=== PATIENT | male | born 1985 | race Caucasian/White ===

== ENCOUNTER 2018-07-25 22:11 | Emergency (ER) | payer OTHER ==
[~2018-07-25] VITALS: Ht 180.3 cm; Wt 95.3 kg
[~2018-07-25 22:11] MED LIST: AMOXICILLIN500 MG PO; FAMOTIDINE20 M1 PO; MOTRIN800 MG PO; OMEPRAZOLE40 MG PO; [UNRECOGNIZED DRUG - OTHER] PO
[2018-07-25] MEDS ORDERED: CEFADROXIL500 M1 PO (22:33)
[2018-07-31] MEDS ORDERED: CETIRIZINE HYDR10 MG PO (11:50)
== END 2018-07-25 22:42 | disposition home or self-care (01) ==
LOC: ED 22:11
DX: S61.412A Laceration without foreign body of left hand, initial encounter (principal); Z79.899 Other long term (current) drug therapy; W45.8XXA Other foreign body or object entering through skin, initial encounter; Y93.89 Activity, other specified; Y92.89 Other specified places as the place of occurrence of the external cause; Y99.9 Unspecified external cause status

== ENCOUNTER → 2018-08-03 | Day surgery (SDC) | payer OTHER ==
[~2018-08-03] VITALS: Ht 177.8 cm; Wt 95.3 kg
[~2018-08-03] MED LIST changes: +CEFADROXIL500 M1 PO; +CETIRIZINE HYDR10 MG PO
--- NOTE | ~2018-08-03 | PROC NOTE ---
[place], [place] PROCEDURE NOTE [id number] UNIT #: [id number] ROOM: DOCTOR: DEEJAY RUIZ MD BIRTHDATE: [birth year] DOS: PROCEDURE: Esophagogastroduodenoscopy and biopsy. INDICATION: GERD. CONSENT: Informed consent was obtained from the patient after indication of procedure, the alternatives and potential complications were explained to him. PROCEDURE MEDICATIONS: Sedation was administered by Anesthesiology Department. SCOPE USED: Olympus diagnostic adult upper endoscope GIF-180, depth of insertion was to the descending duodenum. FINDINGS: After adequate sedation, the patient was placed in left lateral decubitus position. The scope was introduced under direct visualization through the upper esophageal sphincter into the esophagus. Esophageal mucosa showed irregular Z line borders at 38 cm from incisors and biopsies were obtained to rule out short segment Angela esophagus. Stomach was then intubated. Gastric mucosa inspected. Severe gastritis was seen with no discrete ulcers or active bleeding. A HARJINDER test was performed from the gastric antrum and body. Retroflexed view of the fundus showed a grade 1 small hiatal hernia. Pylorus was intubated easily. The duodenal bulb and descending duodenum were within normal range. Scope was then withdrawn after the stomach was decompressed. The patient tolerated the procedure well. IMPRESSION: 1. Small hiatal hernia. 2. Irregular Z line borders, rule out short segment Angela esophagus, biopsies obtained. 3. Gastritis, HARJINDER test pending. PLAN: We will review the HARJINDER test and histopathology reports and treat the patient accordingly. Office followup will be scheduled in 2-3 weeks. DEEJAY RUIZ MD CM:PROCNOTE:PROCEDURE NOTE [id number] DEEJAY RUIZ MD
[2018-08-03 08:12] VITALS: BP 127/81
[2018-08-03 09:22] VITALS: BP 113/78
[2018-08-03 09:37] VITALS: BP 121/75
[2018-08-03 09:52] VITALS: BP 123/78
== END | disposition home or self-care (01) ==
LOC: SDC 07-30 08:00
DX: K29.50 Unspecified chronic gastritis without bleeding (principal); K44.9 Diaphragmatic hernia without obstruction or gangrene; K21.9 Gastro-esophageal reflux disease without esophagitis; Z98.890 Other specified postprocedural states; Z72.89 Other problems related to lifestyle; Z79.899 Other long term (current) drug therapy

== ENCOUNTER → 2019-07-03 | Outpatient (CLI) | payer OTHER | END | disposition home or self-care (01) | LOC: COVID19 16:10 | DX: B34.9 Viral infection, unspecified (principal) ==

== ENCOUNTER 2019-07-25 11:31 | Emergency (ER) | payer OTHER ==
[~2019-07-25] VITALS: Ht 177.8 cm; Wt 98.4 kg
[2019-07-25 12:22] LABS: BASO % 0.4 % (0.0-1.0); EOS % 0.3 % (1.0-4.0); HEMATOCRIT 46.8 % (42.0-52.0); LYMPH # 1.4 10*3/uL (1.3-4.4); LYMPH % 12.3 % (27.0-41.0); MEAN CELL VOLUME 83.6 fl (80.0-94.0); MEAN CORPUSCULAR HGB 27.7 pg (27.0-31.0); MEAN CORPUSCULAR HGB CONC 33.1 g/dl (33.0-37.0); MEAN PLATELET VOLUME 10.6 fl (9.6-12.3); MONO # 0.5 10*3/uL (0.1-1.0); MONO % 4.8 % (3.0-9.0); NEUT # 9.2 10*3/uL (2.3-7.9); NEUT % 81.8 % (47.0-73.0); PLATELET COUNT AUTOMATED 312 10*3/uL (130-400); RED CELL DISTRI WIDTH 13.3 % (0-14.5); WHITE BLOOD COUNT 11.3 10*3/uL (4.8-10.8)
[2019-07-25 12:34] LABS: ALBUMIN 4.1 gm/dl (3.1-4.5); ALKALINE PHOSPHATASE 65 U/L (45-117); BUN 15 mg/dl (7-24); CHLORIDE 104 mmol/L (98-107); CREATININE 1.05 mg/dL (0.70-1.30); LIPASE 114 U/L (73-393); POTASSIUM 3.5 mmol/L (3.5-5.1); SGOT/AST 20 IU/L (3-35); SGPT/ALT 42 U/L (12-78); SODIUM 139 mmol/L (136-145)
[2019-07-25 12:39] LABS: ACT PARTIAL THROMBO TIME 27.9 SECONDS (20.0-32.1); INTERNATIONAL NORM RATIO 1.1 (2.0-3.5)
[2019-07-25] MEDS ORDERED: DULCOLAX STOOL100 MG PO (14:04)
== END 2019-07-25 14:44 | disposition home or self-care (01) ==
LOC: ED 11:31
PROVIDERS: Family Medicine
DX: K42.9 Umbilical hernia without obstruction or gangrene (principal); K59.00 Constipation, unspecified; Z79.899 Other long term (current) drug therapy

== ENCOUNTER 2021-08-05 08:16 | Emergency (ER) | payer OTHER ==
[~2021-08-05] VITALS: Ht 177.8 cm; Wt 105.2 kg
[~2021-08-05 08:16] MED LIST changes: +DULCOLAX STOOL100 MG PO
[2021-08-05] MEDS ORDERED: PROTONIX40 MG PO (11:03)
[2021-08-05] MEDS ORDERED: PEPCID20 MG PO (11:03)
== END 2021-08-05 11:07 | disposition home or self-care (01) ==
LOC: ED 08:16
DX: K21.9 Gastro-esophageal reflux disease without esophagitis (principal); Z79.899 Other long term (current) drug therapy

== ENCOUNTER 2022-10-11 17:20 | Emergency (ER) | payer OTHER ==
[~2022-10-11] VITALS: Ht 177.8 cm; Wt 95.3 kg
[~2022-10-11 17:20] MED LIST changes: +PEPCID20 MG PO; +PROTONIX40 MG PO
[2022-10-11] MEDS ORDERED: VIBRA-TAB100 MG PO (18:11)
== END 2022-10-11 18:15 | disposition home or self-care (01) ==
LOC: ED 17:20
DX: L03.313 Cellulitis of chest wall (principal); Z79.899 Other long term (current) drug therapy

== ENCOUNTER 2023-09-07 21:41 | Emergency (ER) | payer OTHER ==
[~2023-09-07] VITALS: Ht 177.8 cm; Wt 95.3 kg
[~2023-09-07 21:41] MED LIST changes: +VIBRA-TAB100 MG PO
[2023-09-07] MEDS ORDERED: Lidocaine Hydrochloride 15 ML UDC PO STA (23:25)
[2023-09-07] MEDS ORDERED: MG-AL HYDROXIDE/SIMETICONE 30 ML UDC PO STA (23:25)
[2023-09-07] MEDS ORDERED: Dicyclomine Hydrochloride 20 MG/10 ML OSYR PO STA (23:25)
[2023-09-07 23:51] LABS: BASO # 0.1 10*3/uL (0.0-0.1); BASO % 0.5 % (0.0-1.0); EOS # 0.1 10*3/uL (0.0-0.4); HEMATOCRIT 46.2 % (42.0-52.0); LYMPH # 1.3 10*3/uL (1.3-4.4); LYMPH % 13.8 % (27.0-41.0); MEAN CELL VOLUME 85.7 fl (80.0-94.0); MEAN CORPUSCULAR HGB CONC 32.7 g/dl (33.0-37.0); MEAN PLATELET VOLUME 10.5 fl (9.6-12.3); MONO # 0.5 10*3/uL (0.1-1.0); MONO % 5.4 % (3.0-9.0); NEUT # 7.2 10*3/uL (2.3-7.9); NEUT % 78.9 % (47.0-73.0); PLATELET COUNT AUTOMATED 299 10*3/uL (130-400); RED BLOOD COUNT 5.39 10*6/uL (4.50-5.90); RED CELL DISTRI WIDTH 13.2 % (0-14.5); WHITE BLOOD COUNT 9.2 10*3/uL (4.8-10.8)
[2023-09-08 00:05] LABS: BUN 16 mg/dl (9-23); CHLORIDE 105 mmol/L (98-107); POTASSIUM 3.8 mmol/L (3.4-5.1)
== END 2023-09-08 02:36 | disposition home or self-care (01) ==
LOC: ED 21:41
PROVIDERS: Internal Medicine
DX: S46.912A Strain of unspecified muscle, fascia and tendon at shoulder and upper arm level, left arm, initial encounter (principal); K21.9 Gastro-esophageal reflux disease without esophagitis; Z98.890 Other specified postprocedural states; S46.911A Strain of unspecified muscle, fascia and tendon at shoulder and upper arm level, right arm, initial encounter; T75.2 Effects of vibration; X50.0XXA Overexertion from strenuous movement or load, initial encounter; Y93.89 Activity, other specified; Y92.89 Other specified places as the place of occurrence of the external cause; Y99.0 Civilian activity done for income or pay

== ENCOUNTER → 2023-09-19 | Outpatient (CLI) | payer OTHER | END | disposition home or self-care (01) | LOC: US 15:00 | PROVIDERS: ATTEND Family Medicine | DX: N50.811 Right testicular pain (principal); N50.3 Cyst of epididymis ==

== ENCOUNTER → 2023-12-09 | Outpatient (CLI) | payer OTHER ==
[2023-12-09 11:09] LABS: LDH 157 U/L (120-246)
[2023-12-09 11:23] LABS: BETA-HCG, TUMOR MARKER < 3.0 mIU/mL (0-3)
== END | disposition home or self-care (01) ==
LOC: LAB 10:19
PROVIDERS: ATTEND Urology
DX: N44.2 Benign cyst of testis (principal); N50.819 Testicular pain, unspecified

== ENCOUNTER → 2023-12-14 | Outpatient (CLI) | payer OTHER | END | disposition home or self-care (01) | LOC: US 03:34 | PROVIDERS: ATTEND Urology | DX: N28.89 Other specified disorders of kidney and ureter (principal) ==

== ENCOUNTER → 2024-03-20 | Outpatient (CLI) | payer OTHER | END | disposition home or self-care (01) | LOC: US 03-15 08:30 | PROVIDERS: ATTEND Urology | DX: N50.3 Cyst of epididymis (principal); N50.819 Testicular pain, unspecified ==

== ENCOUNTER → 2024-06-01 | Outpatient (CLI) | payer OTHER | END | disposition home or self-care (01) | LOC: US 03:11 | PROVIDERS: ATTEND Urology | DX: N50.3 Cyst of epididymis (principal); N43.3 Hydrocele, unspecified; N50.811 Right testicular pain; N49.2 Inflammatory disorders of scrotum ==

== ENCOUNTER → 2024-06-15 | Outpatient (CLI) | payer OTHER | END | disposition home or self-care (01) | LOC: US 06-12 08:00 | PROVIDERS: ATTEND Urology | DX: N32.89 Other specified disorders of bladder (principal); N28.89 Other specified disorders of kidney and ureter ==

== ENCOUNTER 2024-06-17 17:48 | Emergency (ER) | payer OTHER ==
[~2024-06-17] VITALS: Ht 177.8 cm; Wt 99.8 kg
[2024-06-17 18:38] LABS: BASO % 0.4 % (0.0-1.0); EOS # 0.1 10*3/uL (0.0-0.4); EOS % 1.2 % (1.0-4.0); HEMATOCRIT 46.6 % (42.0-52.0); MEAN CELL VOLUME 83.8 fl (80.0-94.0); MEAN CORPUSCULAR HGB 28.2 pg (27.0-31.0); MEAN CORPUSCULAR HGB CONC 33.7 g/dl (33.0-37.0); MEAN PLATELET VOLUME 10.1 fl (9.6-12.3); MONO # 0.7 10*3/uL (0.1-1.0); MONO % 6.6 % (3.0-9.0); NEUT # 7.2 10*3/uL (2.3-7.9); NEUT % 69.7 % (47.0-73.0); PLATELET COUNT AUTOMATED 332 10*3/uL (130-400); RED BLOOD COUNT 5.56 10*6/uL (4.50-5.90); RED CELL DISTRI WIDTH 13.1 % (0-14.5); WHITE BLOOD COUNT 10.4 10*3/uL (4.8-10.8)
[2024-06-17 18:59] LABS: ALKALINE PHOSPHATASE 63 U/L (46-116); BUN 17 mg/dl (9-23); CHLORIDE 103 mmol/L (98-107); LIPASE 47 U/L (12-53); POTASSIUM 3.5 mmol/L (3.4-5.1); SGPT/ALT 54 U/L (5-49); TOTAL PROTEIN 7.7 gm/dL (6.0-8.0)
[2024-06-17 19:08] LABS: BILIRUBIN Negative (Negative); BLOOD Negative (Negative); CLARITY Clear (Clear); COLOR Yellow (Yellow); GLUCOSE Negative (Negative); KETONE Negative (Negative); LEUKO ESTERASE Negative (Negative); NITRITE Negative (Negative); SPECIFIC GRAVITY >= 1.030 (1.001-1.030); UROBILINOGEN 0.2 E.U./dl (0.0-1.0)
[2024-06-17 19:16] LABS: WBC 0-2 wbc/hpf (0-5)
== END 2024-06-17 19:46 | disposition home or self-care (01) ==
LOC: ED 17:48
PROVIDERS: Nurse Practitioner Family
DX: R10.84 Generalized abdominal pain (principal); N43.3 Hydrocele, unspecified; K21.9 Gastro-esophageal reflux disease without esophagitis